=== PATIENT | female | born 1970 | race Caucasian/White ===

== ENCOUNTER 2018-06-08 17:40 | Emergency (ER) | payer OTHER ==
[~2018-06-08 17:40] MED LIST: PREN-56 PO
--- NOTE | 2018-06-08 18:06 | NUR ---
CALLED FOR PT TO TRIAGE, NO ANSWER IN LOBBY OR OUTSIDE OF ER ENTRANCE. PT LWBS AT 1806.
--- NOTE | 2018-06-08 18:15 | NUR ---
CALLED FOR PT TO TRIAGE FOR SECOND TIME, NO ANSWER IN LOBBY OR OUTSIDE OF ER ENTRANCE. PT LWBS AT 1806.
--- NOTE | 2018-06-08 18:23 | NUR ---
CALLED FOR PT TO TRIAGE FOR THIRD TIME, NO ANSWER IN LOBBY OR OUTSIDE OF ER ENTRANCE. PT LWBS AT 1806.
== END 2018-06-08 18:06 | disposition left against medical advice (07) ==
LOC: MED 17:40
DX: Z53.21 Procedure and treatment not carried out due to patient leaving prior to being seen by health care provider (principal)

== ENCOUNTER 2018-06-08 22:57 | Emergency (ER) | payer OTHER ==
[~2018-06-08] VITALS: Ht 167.6 cm; Wt 70.8 kg
[2018-06-08 23:11] VITALS: BP 115/78
--- NOTE | 2018-06-09 00:19 | NUR ---
PT AMBULATED TO BED #11, GAVE REPORT TO RN
--- NOTE | 2018-06-09 00:21 | NUR ---
PT BIB SELF C/O COUGH X1 WEEK. REPORTS BEING FATIGUED. RR SYMMETRICAL, NON-LABORED, BREATH SOUNDS CLEAR THROUGHOUT. REPORTS FEVER, AFEBRILE AT THIS TIME. VSS. ER MD TO SEE PT. DENIES MED HX
--- NOTE | 2018-06-09 00:43 | NUR ---
CHELE COTA AT BEDSIDE AT THIS TIME.
[2018-06-09 01:23] VITALS: BP 115/78
--- NOTE | 2018-06-09 01:23 | NUR ---
Patient discharged with v/s stable. Written and verbal after care instructions given and explained. Patient alert, oriented and verbalized understanding of instructions. Ambulatory with steady gait. All questions addressed prior to discharge. ID band removed. Patient advised to follow up with PMD. Rx of PROMETHAZINE WAS given. Patient educated on indication of medication including possible reaction and side effects. Opportunity to ask questions provided and answered.
== END 2018-06-09 01:23 | disposition home or self-care (01) ==
LOC: MED 22:57
DX: R05 Cough (principal); R09.89 Other specified symptoms and signs involving the circulatory and respiratory systems; R50.9 Fever, unspecified; Z79.899 Other long term (current) drug therapy
CPT/HCPCS: 87804; 99283